=== PATIENT | female | born 1995 | race Caucasian/White ===

== ENCOUNTER 2020-09-24 13:19 | Emergency (ER) | payer OTHER, SELFPAY ==
[2020-09-24 14:46] VITALS: BP 98/68; PULSE 93; RESP 18; TEMP 36.9; O2SAT 98; BMI 28.5
[2020-09-24 16:28] LABS: MANUAL DIFF FLAG NO
[2020-09-24 16:30] LABS: Basophils Percent Auto 0.3 % (0-2); Eosinophils Absolute Auto 0.2 X10*3/uL (0.0-0.4); Eosinophils Percent Auto 1.6 % (0-4); Hematocrit 33.7 % (37-47); Hemoglobin 10.9 g/dl (12.0-16.0); Imm Gran Abs Auto 0.04 X10*3/uL (0.00-0.03); Imm Gran Pct Auto 0.4 % (0.0-0.4); Lymphocytes Absolute Auto 2.9 X10*3/uL (1.2-4.9); Lymphocytes Percent Auto 29.4 % (20-40); Mean Corpuscular HGB Conc 32.3 g/dl (31.0-35.0); Mean Corpuscular Hemoglobin 26.1 pg (27.0-33.0); Mean Corpuscular Volume 80.6 fL (80-98); Mean Platelet Volume 9.6 fL (9.4-12.3); Monocytes Absolute Auto 0.6 X10*3/uL (0.1-1.2); Monocytes Percent Auto 5.7 % (2-11); Neutrophils Absolute Auto 6.3 X10*3/uL (2.0-8.3); Neutrophils Percent Auto 62.6 % (45-73); Platelet Count 247 X10*3/uL (160-400); Red Blood Count 4.18 X10*6/uL (4.20-5.50); Red Cell Distribution Width 12.8 % (11.0-16.0)
[2020-09-24 16:37] VITALS: BP 105/67; PULSE 85; RESP 15; O2SAT 98
[2020-09-24 16:57] LABS: Alanine Aminotransferase 95 U/L (0-31); Albumin Level 4.2 g/dL (3.5-5.0); Alkaline Phosphatase 92 U/L (39-117); Anion Gap 12 (12-20); Aspartate Amino Transferase 57 U/L (5-31); Bilirubin Total 0.3 mg/dL (0.0-1.0); Blood Urea Nitrogen 11 mg/dL (9-16); Calcium 9.3 mg/dL (8.4-10.2); Carbon Dioxide 25 mmol/L (22-29); Chloride 106 mmol/L (96-108); Creatinine Clr Calc Pharmacy 128.6; Estimated Glomerular Filt Rate > 60; Glucose Random 90 mg/dL (60-115); Potassium 4.4 mmol/L (3.3-5.1); Sodium 139 mmol/L (135-145); Total Protein 7.1 g/dL (6.5-8.0)
[2020-09-24] MEDS: Amoxicillin/Potassium Clav 875 MG TABLET PO (17:02)
--- NOTE | 2020-09-24 17:44 | ED.HA ---
HPI - Headache General Chief Complaint: Headache Stated Complaint: headache Time Seen by Provider: 09/24/20 16:41 Source: patient Mode of arrival: ambulatory Limitations: no limitations History of Present Illness HPI Narrative: Patient history of headache off and on lately for last 3 days been having more headache is sensitive to light and has nausea patient also complaining of nasal congestion with and dry cough no fever no chills no urinary complaints patient does have family history of migraine but never treated or taken any medication, no fever no chills Related Data Previous Rx's Medication Instructions Recorded amoxicillin-pot clavulanate 1 tab PO BID #20 tab 09/24/20 [Augmentin] ondansetron 4 mg PO Q6-8H PRN #5 tab 09/24/20 sumatriptan succinate [Imitrex] 50 mg PO Q2H PRN #10 tab 09/24/20 Allergies Allergy/AdvReac Type Severity Reaction Status Date / Time No Known Allergies Allergy Unverified 12/25/19 19:09 [No Known Allergies*] Review of Systems Review of Systems: Yes all other systems are reviewed and are negative [facility] Social History Social History Alcohol intake: never Patient Tobacco Use Status: Never used Tobacco Use of substances other than those prescribed or required for medical reasons: No Advance Directives: No Advance Directives Information Provided: No Patient : No Physical Exam Vital Signs: Vital Signs: Last Vital Signs Temp 98.4 F 09/24/20 14:46 Pulse 83 09/24/20 17:51 Resp 16 09/24/20 17:51 BP 110/78 09/24/20 17:51 Pulse Ox 99 09/24/20 17:51 Body Mass Index 28.5 Appearance: Alert. Oriented X3. No acute distress. Eyes: PERRLA, No Nystagmus ENT: Pharynx normal. Oral Mucosa moist no sinus tenderness nasal turbinates inflamed with clear discharge Neck: Normal inspection. Neck supple. No temporal artery tenderness CVS: Normal heart rate and rhythm. Pulses normal. Respiratory: No respiratory distress. Equal air entry bilateral, no wheezing/rales/rhonchi Abdomen: Soft and nontender. Bowel sounds are present, no mass palpable, no CVA tenderness Skin: Skin warm and dry. Normal skin color. Normal skin turgor. Extremities: No lower extremity edema. No calf tenderness Neuro: Oriented X 3. No motor deficit. No sensory deficit.No cerebellar signs , cranial nerves II-XII intact MDM - Headache MDM Narrative Medical decision making narrative: Patient feeling better after Imitrex headache almost gone will discharge patient home on Imitrex tablets and Augmentin for sinus infection Lab Data Attestation: I reviewed the patient's lab results. Result diagrams: 09/24/20 15:59 09/24/20 15:59 Labs: Lab Results 09/24/20 09/24/20 Range/Units 15:59 15:59 WBC 10.0 (4.8-10.8) X10*3/uL RBC 4.18 L (4.20-5.50) X10*6/uL Hgb 10.9 L (12.0-16.0) g/dl Hct 33.7 L (37-47) % MCV 80.6 (80-98) fL MCH 26.1 L (27.0-33.0) pg MCHC 32.3 (31.0-35.0) g/dl RDW 12.8 (11.0-16.0) % Plt Count 247 (160-400) X10*3/uL MPV 9.6 (9.4-12.3) fL Immature Gran % (Auto) 0.4 (0.0-0.4) % Neut % (Auto) 62.6 (45-73) % Lymph % (Auto) 29.4 (20-40) % [place] % (Auto) 5.7 (2-11) % Eos % (Auto) 1.6 (0-4) % Baso % (Auto) 0.3 (0-2) % Lymph # (Auto) 2.9 (1.2-4.9) X10*3/uL [place] # (Auto) 0.6 (0.1-1.2) X10*3/uL Eos # (Auto) 0.2 (0.0-0.4) X10*3/uL Baso # (Auto) 0.0 (0.0-0.2) X10*3/uL Abs Immat Gran (auto) 0.04 H (0.00-0.03) X10*3/uL Absolute Neuts (auto) 6.3 (2.0-8.3) X10*3/uL Absolute Nucleated RBC 0.000 (0.0-0.012) X10*3/uL Nucleated RBC % (auto) 0.0 (0.0-0.2) /100WBC Sodium 139 (135-145) mmol/L Potassium 4.4 (3.3-5.1) mmol/L Chloride 106 (96-108) mmol/L Carbon Dioxide 25 (22-29) mmol/L Anion Gap 12 (12-20) BUN 11 (9-16) mg/dL Creatinine 0.64 (0.5-1.4) mg/dL Estim Creat Clear Calc 128.6 Estimated GFR > 60 Random Glucose 90 (60-115) mg/dL Calcium 9.3 (8.4-10.2) mg/dL Total Bilirubin 0.3 (0.0-1.0) mg/dL AST 57 H (5-31) U/L ALT 95 H (0-31) U/L Alkaline Phosphatase 92 (39-117) U/L Total Protein 7.1 (6.5-8.0) g/dL Albumin 4.2 (3.5-5.0) g/dL Discharge Plan Discharge Clinical Impression: Migraine, Acute rhinosinusitis Patient Disposition: Home, Self-Care Instructions: Migraine Headache (ED), Rhinosinusitis (ED) Additional Instructions: Take medication as advised follow-up with PCP if not better Prescriptions: New amoxicillin-pot clavulanate [Augmentin] 875-125 mg tablet 1 tab PO BID Qty: 20 RF: 0 sumatriptan succinate [Imitrex] 50 mg tablet 50 mg PO Q2H PRN (Reason: migraine headache) Qty: 10 RF: 0 ondansetron 4 mg tablet,disintegrating 4 mg PO Q6-8H PRN (Reason: Nausea And Vomiting) Qty: 5 RF: 0 Interventions: ED Discharge Assessment Last Done: 09/24/20 18:05 Discharge Date/Time: 09/24/20 18:08
[2020-09-24 17:51] VITALS: BP 110/78; PULSE 83; RESP 16; O2SAT 99
== END 2020-09-24 18:08 | disposition home or self-care (01) ==
PROVIDERS: Emergency Provider Internal Medicine; PCP Nurse Practitioner Primary Care
DX: G43.009 Migraine without aura, not intractable, without status migrainosus (principal); J01.90 Acute sinusitis, unspecified
CPT/HCPCS: 36415; 80053; 85025; 96372; 99284; J3030

== ENCOUNTER 2024-05-13 08:01 | Outpatient (AMB) | payer OTHER, SELFPAY ==
--- OUTSIDE RECORDS SUMMARY | 2024-05-13 08:04 | XMS_ITS | Clinical Summary ---
Author Organization [employer] Address [address] [place] [address] [address] [place] [address] Care Team Providers Care Churn Operator Name Role Phone Kennedi Romero Primary Care Provider Allergies Active Allergy Reactions Criticality Noted Date Comments Sumatriptan 06/07/2021 Other reaction(s): Nausea / Vomiting Medications buPROPion XL (Wellbutrin XL) 300 MG 24 hr tablet Take 1 tablet by mouth at bed time. 2 Active amphetamine-dextro amphetamine XR (Adderall XR) 10 MG 24 hr capsuleIndications :Attention deficit disorder (ADD) without hyperactivity Take 1 capsule (10 mg) by mouth Once per day. Do not crush or chew. 60 capsule 4 Active Active Problems Problem Noted Date Diagnosed Date Attention deficit disorder (ADD) without hyperac tivity 07/03/2022 Preoperative examination 04/06/2022 Assessment & Plan (04/06/2022 11:00 AM EST): Patient is here for a preoperative examination She is scheduled for: a tummy Tuck, Breast lift with implant and chin by Dr. Nigel Barney in [place] The procedure will be under general anesthesia [place] [id number] [facility], [place] [address] Patient has no particular complaints today, feels good otherwise EKG is within normal limits CMP, CBC, PT, INR done 03/17/2022 were normal Patients physical exam today, lab results and EKG are within normal limits I do not see any contraindication for patient to undergo this procedure Patient has been advised to remain under the care of surgeon until she completes her postoperative care Resolved Problems Problem Noted Date Diagnosed Date Resolved Date Attention deficit 07/03/2022 07/03/2022 Immunizations Name Administration Dates Next Due HPV, Quadrivalent 04/06/2011,12/20/2006,10/17/19 07 Hep A, ped/adol, 2 dose 04/29/2011,10/05/2010 Hep B, Adolescent or Pediatric 06/22/1995,1994,01/04/1995 Hep B, adult 08/01/2021 Influenza Injectable Quadriv alant Preservative Free IIV4 MDCK 12/28/2020,12/31/2019 Influenza injectable quadriv alent preservative free 01/30/2022,02/26/2018 MMR 03/09/1999,01/15/1996 PPD Test 02/04/2022 Tdap 11/15/2020,02/26/2018 Social History Tobacco Use Types Packs/Day Years Used Date Smoking Tobacco: Never Smokeless Tobacco: Never Tobacco Cessation:Counseling Given: Not Answered Alcohol Use Standard Drinks/Week Comments Not Currently 0 (1 standard drink = 0.6 oz pur e alcohol) Housing Stability Answer Date Recorded What is your housing situation today? I have housing today, but I am worried about losing housing in the future 02/12/[address] you li ve. Do you have problems with any of the following? None of the above 02/12/2023 Food Insecurity Answer Date Recorded Within the past 12 months, y ou worried that your food would run out before you got money to buy more: Never True 02/12/2023 Within the past 12 months,th e food you bought just didn't last and you didn't have enough money to get more: Never True 09/2022 Transportation Answer Date Recorded In the past 12 months, has l ack of transportation kept you from medical appts, meetings, work or from getting things needed for daily living? No 02/12/2023 Utilities Answer Date Recorded In the past 12 months, has t he electric, gas, oil or water company threatened to shut off services in your home? No 02/12/2023 Depression Answer Date Recorded Patient Health Questionnaire-2 Score 0 04/06/2022 Comments Unknown Sex and Gender Information Value Date Recorded Sex Assigned at Female 02/06/2022 10:34 AM EDT Legal Sex Female 10:34 AM EDT Gender Identity Female 02/06/2022 10:34 AM EDT Sexual Orientation Straight 02/06/2022 10 :34 AM EDT Last Filed Vital Signs Vital Sign Reading Time Taken Comments Blood Pressure 104/82 04/06/2022 10:04 AM EST Pulse 88 04/06/2022 10:04 AM EST Temperature 37.1 ??C (98.7 ??F) 04/06/2022 10:[address] Respiratory Rate 20 04/06/2022 10:04 AM EST Oxygen Saturation 98% 04/06/2022 10:04 AM EST Inhaled Oxygen Concentration - - Weight 72.1 kg (159 lb) 04/06/2022 10:04 AM EST Height 160 cm (5' 3 ) 04/06/2022 10:04 AM EST Body Mass Index 28.17 04/06/2022 10:04 AM EST Plan of Treatment Upcoming Encounters Date Type Department Care Team (Late st Contact Info) Description 06/24/2024 1:30 PM EDT Office Visit [facility] [address] [place] [address] Kennedi Romero, ANP [address] [place], [place] [phone] Health Maintenance Due Date Last Done Comments Alcohol/Substance Use Screening 2006 Family Planning (PISQ) 2009 Pap Smear 12/27/2015 Depression Screening 04/06/2023 04/06/2022, 04/06/20 22 SDOH Screening 04/06/2023 04/06/2022 Tobacco Screening 07/04/2023 07/03/2022 COVID-19 Vaccine ( season) 2023 12/07/2021, 05/04/2020, 04/06/2020 Influenza Vaccine (#1) 2023 , 01/30/2022, 12/28/2020, Additional history exists DTaP/Tdap/Td Vaccines (3 - Td or Tdap) 11/15/2030 11/15/2020, 02/26/2018 Zoster Vaccines (1 of 2) 2044 RSV Patients and Patients Aged 60 years or older (1 - 1-dose 75+ series) 2069 HPV Vaccines Completed 04/06/2011, 12/08, 10/16/2006 Hepatitis A Vaccines Completed 04/29/2011, 10/06/19 11 HIV Screening Completed 11/15/2020 Hepatitis C Screening Completed 11/15/2020 Hepatitis B Vaccines Completed 08/01/2021, 06/22/1995, 02/16/1995, Additional history exists HIB Vaccines Aged Out No longer eligi ble based on patient's age to complete this topic IPV Vaccines Aged Out No longer eligi ble based on patient's age to complete this topic Meningococcal Vaccine Aged Out No jaja loren eligible based on patient's age to complete this topic Pneumococcal Vaccine: Pediatrics (0 to 5 Years) and At-Risk Patients (6 to 49) Years) Aged Out No longer eligible based on patient's age to complete this topic RSV under 20 months Aged Out No longe r eligible based on patient's age to complete this topic Rotavirus Vaccines Aged Out No longer eligible based on patient's age to complete this topic Procedures Procedure Name Priority Date/Time Associated Diagnosis Comments ZZZ HISTORICAL HEPATITIS C AB W/REFL TO HCV RNA, QN, PCR Routine 11/15/2020 1:59 PM EDT HIV 1/2 ANTIGEN/ANTIBODY, FOURTH GENERATION W/RFL Routine 11/15/2020 1:59 PM EDT from Last 3 Months or Most Recently Relevant to Health Maintenance Results * HEPATITIS C AB W/REFL TO HCV RNA, QN, PCR (11/15/2020 1:59 PM EDT) HEPATITIS C ANTIBODY NON-REACT [facility] NON-REACT [facility] INDEX 0.02 <1.00 [facility] Comment: ?? HCV antibody was non-reactive. There is no laboratory ?? evidence of HCV infection. ?? In most cases, no further action is required. However, if recent HCV exposure is suspected, a test for HCV RNA (test code 01123) is suggested. ?? For additional information please refer to http://education.Carte [place]anche/faq/PAV61s9 (This link is being provided for informational/ educational purposes only.) ?? 11/15/2020 1:59 PM EDT Kennedi Romero ANP HISTORICAL/NON ORDERABLE LABS Fi nal Result Performing Organization Address [facility] de Phone Number [facility] [address] * HIV 1/2 ANTIGEN/ANTIBODY,FOURTH GENERATION W/RFL (11/15/2020 1:59 PM EDT) HIV-1/2 ANTIGEN AND ANTIBODIES, 4TH GENERATION W/ REFLEX NON-REACT RICKY NON-REACT [facility] Comment: HIV-1 antigen and HIV-1/HIV-2 antibodies were not detected. There is no laboratory evidence of HIV infection. ?? PLEASE NOTE: This information has been disclosed to you from records whose confidentiality may be protected by state law. ??If your state requires such protection, then the state law prohibits you from making any further disclosure of the information without the specific written consent of the person to whom it pertains, or as otherwise permitted by law. A general authorization for the release of medical or other information is NOT sufficient for this purpose. ? For additional information please refer to http://education.Carte [place]anche/faq/QEH055 (This link is being provided for informational/ educational purposes only.) ? The performance of this assay has not been clinically validated in patients less than 2 years old. ?? 11/15/2020 1:59 PM EDT Kennedi Romero ANP LAB BLOOD ORDERABLES Final Resul t Performing Organization Address [facility] de Phone Number [facility] [address] from Last 3 Months or Most Recently Relevant to Health Maintenance Insurance [facility] Care Teams Churn Operator Relationship Specialty Start Date End Date Kennedi Romero ANP [address] [place] [phone] PCP - General Family Medicine 09/14/20
--- NOTE | 2024-05-13 08:13 | MHC.OFFWIV ---
Intake Vital Signs 05/13/24 08:14 Weight 163 lb 4 oz BP 110/68 Blood Pressure Location Rt brachial Position Sitting Pulse 70 Pulse Source Pulse Oximeter Temp 98.4 F Temp Source Oral Pulse Oximetry (%) 98 Oxygen Delivery Method Room Air Intake Visit Reasons: REHABILITATION LIAISON Cold symptoms/caused pulled muscle neck Intake Note: Patient here for cough, congestion and pulled muscle in neck from coughing so hard. Patient Tobacco Use Status: Never used Tobacco Allergies No Known Allergies [No Known Allergies*] Allergy (Unverified 05/13/24 08:22) Do you need a note to return to daycare/school/sports/work: No HPI HPI Comments History of Present Illness Details History - The patient is a 28-year-old female presenting with symptoms of a cold and left sided neck muscle strain from sneezing. - She reports experiencing a cold for the past three days, characterized by significant coughing, congestion, and sneezing. She denies having a fever but indicates mild shortness of breath attributed to excessive coughing. - The onset of the cold symptoms followed a recent norovirus infection last week, during which she experienced nausea, vomiting, and diarrhea. - The muscle strain occurred when she sneezed forcefully, resulting in neck pain and restricted neck movement. - She does not report any ear or sinus pain. 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 Posterior oropharynx not erythematous Eyes: Appearance normal, both eyes and all related structures Neck: Normal visual inspection, no TTP cervical spine, TTP along left sided trapezius Respiratory: Clear to auscultation bilaterally. Normal respiratory effort, able to speak in complete sentences, Actively coughing, no respiratory distress, not tachypneic, no tripod positioning and no use of accessory muscles Cardiovascular: Regular rate and rhythm. Normal S1 and S2 Skin: No rashes or lesions noted Neuro: Patient oriented x3 Extremities: Normal to inspection and Yes no clubbing, cyanosis or edema Plan [facility] Social History Alcohol intake: never Patient Tobacco Use Status: Never used Tobacco Review of Systems Const All systems reviewed & are unremarkable except as noted in HPI and below Physical Exam Vital Signs: Last Vital Signs Temp 98.4 F 05/13/24 08:14 Pulse 70 05/13/24 08:14 BP 110/68 05/13/24 08:14 Pulse Ox 98 05/13/24 08:14 Oxygen Delivery Method Room Air 05/13/24 08:14 Assessment & Plan Assessment & Plan (1) Lower respiratory infection (e.g., bronchitis, pneumonia, pneumonitis, pulmonitis): Code(s): J22 - Unspecified acute lower respiratory infection Plan: Tests for influenza, COVID-19, and RSV are initiated, with results expected by tomorrow. Meanwhile, the patient is directed to use Mucinex or Lavonne D to address congestion, along with Tessalon Perles and Benadryl to manage nighttime symptoms. Ibuprofen is recommended for its anti-inflammatory properties to reduce coughing distress. This interim regimen is designed to maintain comfort and symptom management while awaiting further diagnostic clarity. Wrote work note for 2 days. Patient was informed and verbally consented to the use of an ambient scribe for clinic note documentation during this visit (2) Strain of neck muscle: Code(s): S16.1XXA - Strain of muscle, fascia and tendon at neck level, initial encounter Qualifiers: Encounter type: initial encounter Qualified Code(s): S16.1XXA - Strain of muscle, fascia and tendon at neck level, initial encounter Plan: Muscle relaxer sent for neck strain. Recommended adding 600mg ibuprofen every 6 hours PRN. Orders: Orders SARS-CoV2/FLU/RSV Today R09.89 - Other specified symptoms and signs involving the circulatory and respiratory systems Medications: New cyclobenzaprine Take 1-2 tablets every 8 hours as needed for muscle spasms 5 mg PO Q8H PRN 20 tabs 0RF Muscle Spasm benzonatate 200 mg PO TID PRN 14 caps 0RF cough Discontinued sumatriptan succinate (Imitrex) do not exceed 2 doses per 24 hrs Discontinued Reason: Patient no longer taking 50 mg PO Q2H PRN 10 tabs 0RF migraine headache amoxicillin-pot clavulanate 875-125 mg (Augmentin) Discontinued Reason: Patient Completed Course 1 tab PO BID 20 tabs 0RF ondansetron Discontinued Reason: Patient no longer taking 4 mg PO Q6-8H PRN 5 tabs 0RF Nausea And Vomiting Coding Level of Care Code New Pt Level 4 (58044) Diagnoses Lower respiratory infection (e.g., bronchitis, pneumonia, pneumonitis, pulmonitis) J22 Strain of neck muscle, initial encounter S16.1XXA Encounter type: initial encounter
[2024-05-13 08:14] VITALS: BP 110/68; PULSE 70; TEMP 36.9; O2SAT 98
== END 2024-05-13 09:04 | disposition home or self-care (01) ==
PROVIDERS: Visit Provider Physician Assistant
DX: J22 Unspecified acute lower respiratory infection (principal); S16.1XXA Strain of muscle, fascia and tendon at neck level, initial encounter

== ENCOUNTER 2024-05-13 08:01 | Outpatient (REF) | payer OTHER, SELFPAY | END 2024-05-13 08:02 | disposition home or self-care (01) | LOC: HO.LAB 08:01 | DX: Z13.89 Encounter for screening for other disorder (principal) ==

== ENCOUNTER 2024-05-13 08:01 | Outpatient (REF) | payer OTHER, SELFPAY ==
--- OUTSIDE RECORDS SUMMARY | 2024-05-13 11:01 | XMS_ITS | Clinical Summary ---
Author Organization [employer] Address [address] [place] [address] [address] [place] [address] Care Team Providers Care Edge Brusher Name Role Phone Kennedi Romero Primary Care Provider [phone] Allergies Active Allergy Reactions Criticality Noted Date [...] and chin by Dr. Nigel Barney in [place] The procedure will be under general anesthesia [place] [id number] [facility], [place] [address] Patient has no particular complaints today, feels [...] Description 06/24/2024 1:30 PM EDT Office Visit [facility] [address] [place] [address] Kennedi Romero, ANP [address] [place], [place] [phone] Health Maintenance Due Date Last Done Comments [...] [facility] INDEX 0.02 <1.00 [facility] Comment: ?? HCV antibody was non-reactive. There is no laboratory ?? evidence of HCV infection. ?? In most cases, no further action is required. However, if recent HCV exposure is suspected, a test for HCV RNA (test code 63972) is suggested. ?? For additional information please refer to http://education.Button/faq/VPY68k7 (This link is being provided for informational/ educational purposes only.) ?? 11/15/2020 1:59 PM EDT Kennedi Romero ANP HISTORICAL/NON ORDERABLE LABS Fi nal Result Performing Organization Address [facility] de Phone Number [facility] [address] * HIV 1/2 ANTIGEN/ANTIBODY,FOURTH GENERATION W/RFL (11/15/2020 1:59 PM EDT) HIV-1/2 ANTIGEN AND ANTIBODIES, 4TH GENERATION W/ REFLEX NON-REACT [facility] NON-REACT [facility] Comment: HIV-1 antigen and HIV-1/HIV-2 [...] ? For additional information please refer to http://education.Button/faq/BCM362 (This link is being provided for informational/ educational purposes only.) ? The performance of this assay has not been clinically validated in patients less than 2 years old. ?? 11/15/2020 1:59 PM EDT Kennedi Romero ANP LAB BLOOD ORDERABLES Final Resul t Performing Organization Address [facility] de Phone Number [facility] [address] from Last 3 Months or Most Recently Relevant to Health Maintenance Insurance [facility] Care Teams Edge Brusher Relationship Specialty Start Date End Date Kennedi Romero ANP [address] [place] [phone] PCP - General Family Medicine 09/14/20
[2024-05-13 12:38] LABS: Influenza A PCR NEGATIVE (Negative); Influenza B PCR NEGATIVE (Negative); Resp Syncy Virus RNA Qual PCR NEGATIVE (Negative); SARS COV2 PCR INHOUSE NEGATIVE (Negative)
== END 2024-05-13 08:02 | disposition home or self-care (01) ==
LOC: HO.LNP 08:01
PROVIDERS: Visit Provider Physician Assistant
DX: R05.1 Acute cough (principal); R09.89 Other specified symptoms and signs involving the circulatory and respiratory systems
CPT/HCPCS: 0241U

== ENCOUNTER 2024-08-04 16:54 | Outpatient (REF) | payer OTHER, SELFPAY ==
--- OUTSIDE RECORDS SUMMARY | 2024-08-04 19:07 | XMS_ITS | Encounter Summary ---
Author Organization [employer] Address [address] [place] [id number] Care Team Providers Care Commercial Producer Name Role Phone Nick Kennedi WE[place]OOK Primary Care Provider [phone] Reason for Referral * Imaging (Urgent) - Authorized Specialty Diagnoses / Procedures Referred By Finaac t Referred To Contact Radiology Diagnoses Dysmenorrhea Menorrhagia with regular cycle Procedures Us Pelvis complete Devika Monahan CNM [address] [place] [address] Phone: tel: fax: [facility] [address] [place] [id number] Phone: tel: fax: Referral ID Status Reason Start Date Expiration Date V isits Requested Visits Authorized [id number] Authorized 08/04/2024 08/04/2025 1 1 * Imaging (Urgent) - Authorized Specialty Diagnoses / Procedures Referred By Contac t Referred To Contact Radiology Diagnoses Dysmenorrhea Menorrhagia with regular cycle Procedures US Pelvis Transvaginal Devika Monahan CNM [address] [place] [address] Phone: tel: fax: [facility] [address] [place] [phone] Phone: tel: fax: Referral ID Status Reason Start Date Expiration Date V isits Requested Visits Authorized [id number] Authorized 08/04/2024 08/04/2025 1 1 Reason for Visit * Reason Comments Gynecologic Exam Encounter Details Date Type Department Care Team (Latest Contact Info) Description 08/04/2024 9:30 AM EDT Procedure Visit [facility] [address] [place] [address] Devika Monahan CNM [address], [place] [phone] Cervical cancer screening (Primary Dx); Dysmenorrhea; Menorrhagia with regular cycle Social History Tobacco Use Types Packs/Day Years Used Date Smoking Tobacco: Never Smokeless Tobacco: Never Tobacco Cessation:Counseling Given: Not Answered Alcohol Use Standard Drinks/Week Comments Not Currently 0 (1 standard drink = 0.6 oz pur e alcohol) Depression Answer Date Recorded Patient Health Questionnaire-9 Score 0 06/24/2024 Patient Health Questionnaire-9 Score 0 06/24/2024 Last PHQ-9: Questionnaire Data Not on file 0 06/24/2024 Housing Stability Answer Date Recorded What is your housing situation today? I have guillermina loera 06/17/[address] you li ve. Do you have problems with any of the following? None of the above 06/17/2024 Food Insecurity Answer Date Recorded Within the past 12 months, y ou worried that your food would run out before you got money to buy more: Never True 06/17/2024 Within the past 12 months,th e food you bought just didn't last and you didn't have enough money to get more: Never True 02/2025 Transportation Answer Date Recorded In the past 12 months, has l ack of transportation kept you from medical appts, meetings, work or from getting things needed for daily living? No 06/17/2024 Utilities Answer Date Recorded In the past 12 months, has t he electric, gas, oil or water company threatened to shut off services in your home? No 06/17/2024 Depression Answer Date Recorded Patient Health Questionnaire-2 Score 0 06/24/2024 Internet Access Answer Date Recorded Internet Access Q1 Yes 06/17/2024 Internet Access Q2 Not on file 06/17/2024 Comments No Sex and Gender Information Value Date Recorded Sex Assigned at Female 02/06/2022 10:34 AM EDT Legal Sex Female 10:34 AM EDT Gender Identity Female 02/06/2022 10:34 AM EDT Sexual Orientation Straight 02/06/2022 10 :34 AM EDT documented as of this encounter Last Filed Vital Signs Vital Sign Reading Time Taken Comments Blood Pressure 119/83 08/04/2024 9:49 AM EDT Pulse 77 08/04/2024 9:49 AM EDT Temperature 36.6 ??C (97.9 ??F) 08/04/2024 9:49 AM ED T Respiratory Rate 16 08/04/2024 9:49 AM EDT Oxygen Saturation 99% 08/04/2024 9:49 AM EDT Inhaled Oxygen Concentration - - Weight 71.3 kg (157 lb 3.2 oz) 08/04/2024 9:49 A M EDT Height 160 cm (5' 3 ) 08/04/2024 9:49 AM EDT Body Mass Index 27.85 08/04/2024 9:49 AM EDT documented in this encounter Progress Notes * Devika Monhaan CNM - 08/04/2024 9:30 AM EDT Subjective Patient ID: Disha Stewart is a 28 y.o. female who presents for pap Last pap 5 years ago, no prior abnormal. 1 AMAB partner x 14y, no safety concerns. Partner has vasectomy. Not planning any more children, happy with method. Notes increasingly heavier, more painful menses x 5 months. Monthly menses x3- 4d. Cramping precedesmenses by 2 days. Needs to wear tampon and pad together and changes Q2h on heaviest days. Review of Systems HENT: Negative for nosebleeds. Genitourinary: Negative for dyspareunia, dysuria, frequency, genital sores, hematuria, menstrual problem, pelvic pain, urgency, vaginal bleeding, vaginal discharge and vaginal pain. No abnormal pap, no abnormal bleeding, no breast pain, no breast mass, no nipple discharge Hematological: Does not bruise/bleed easily. Objective BP 119/83 (BP Location: Left arm, Patient Position: Sitting, BP Cuff Size: Adult) Pulse 77 Temp97.9 ??F (36.6 ??C) (Temporal) Resp 16 Ht 5' 3 (1.6 m) Wt 157 lb 3.2 oz (71.3 kg) LMP 07/23/2024 (Exact Date) SpO2 99% BMI 27.85 kg/m?? Physical Exam Constitutional: Appearance: Normal appearance. Chest: Breasts: Right: Normal. No swelling, bleeding, inverted nipple, mass, nipple discharge, skin change or tenderness. Left: Normal. No swelling, bleeding, inverted nipple, mass, nipple discharge, skin change or tenderness. Comments: Surgical scars with some hypertrophy and implants bilaterally Abdominal: General: A surgical scar is present. Genitourinary: General: Normal vulva. Labia: Right: No rash, tenderness, lesion or injury. Left: No rash, tenderness, lesion or injury. Vagina: Normal. No signs of injury and foreign body. No vaginal discharge, erythema, tenderness, bleeding or lesions. Cervix: No cervical motion tenderness, discharge, friability, lesion, erythema, cervical bleeding or eversion. Uterus: Normal. Not enlarged and not tender. Adnexa: Right adnexa normal and left adnexa normal. Right: No mass, tenderness or fullness. Left: No mass, tenderness or fullness. Lymphadenopathy: Upper Body: Right upper body: No supraclavicular or axillary adenopathy. Left upper body: No supraclavicular or axillary adenopathy. Neurological: Mental Status: She is alert. Psychiatric: Mood and Affect: Mood normal. Behavior: Behavior normal. Assessment/Plan Diagnoses and all orders for this visit: Cervical cancer screening - Pap Smear Repeat 3 years if normal. Will contact with results. Dysmenorrhea - US Pelvis Transvaginal; Future - Us Pelvis complete; Future Worsening for past 5 months. Will get ultrasound. Consider hormonal therapy if she wants after that. Currently using Midol with fairly good response. Menorrhagia with regular cycle - US Pelvis Transvaginal; Future - Us Pelvis complete; Future Normal TSH/cbc 06/2024. Will get ultrasound to rule out structural issues. documented in this encounter Plan of Treatment Upcoming Encounters Date Type Department Care Team (Sunny [facility] Gabriela Info) Description 09/30/2024 9:15 AM EDT Office Visit [facility] [address] [place] [address] Kennedi Romero ANP [address] [place] [address] Scheduled Orders Name Type Priority Associated Diagnoses Order Schedule Pap Smear Pathology and Cytology Routine Cervical cancer screening Ordered: 08/04/2024 US Pelvis Transvaginal Imaging Urgent Dysmenorrhea Menorrhagia with regular cycle Expected: 08/04/2024, Expires: 08/04/2025 Us Pelvis complete Imaging Urgent Dysmenorrhea Menorrhagia with regular cycle Expected: 08/04/2024, Expires: 08/04/2025 documented as of this encounter Visit Diagnoses Diagnosis Cervical cancer screening- Primary Screening for malignant neoplasm of the cervix Dysmenorrhea Menorrhagia with regular cycle documented in this encounter Additional Health Concerns Assessment Noted Time PHQ-9 Depression Total Score: 0 06/25/19 25 12:57 PM EDT documented as of this encounter Care Teams Commercial Producer Relationship Specialty Start Date End Date Kennedi Romero ANP [address] [place] [address] PCP - General Family Medicine 09/14/20 documented as of this encounter
--- OUTSIDE RECORDS SUMMARY | 2024-08-04 19:07 | XMS_ITS | Encounter Summary ---
Author Organization [employer] Address [address] [place] [address] Care Team Providers Care Back Hand Name Role Phone Kennedi Romero Primary Care Provider [phone] Encounter Details Date Type Department Care Team (Latest Contact Info) Description 08/04/2024 Travel Social History Tobacco Use Types Packs/Day Years Used Date Smoking Tobacco: Never Smokeless Tobacco: Never Alcohol Use Standard Drinks/Week Comments Not Currently [...] AM EDT documented as of this encounter Plan of Treatment Upcoming Encounters Date Type Department Care Team (Late st Contact Info) Description 09/30/2024 9:15 AM EDT Office Visit [facility] [address] [place] [address] Kennedi Romero ANP [address] [place] [address] documented as of this encounter Visit Diagnoses Not on filedocumented in this encounter Additional Health Concerns Assessment Noted Time PHQ-9 Depression Total Score: 0 06/25/19 25 12:57 PM EDT documented as of this encounter Care Teams Back Hand Relationship Specialty Start Date End Date Kennedi Romero ANP [address] [place] [id number] PCP - General Family Medicine 09/14/20 documented as of this encounter
--- OUTSIDE RECORDS SUMMARY | 2024-08-04 19:07 | XMS_ITS | Clinical Summary ---
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 Do not crush or chew. 30 capsule 07/31/19 25 025 Active amphetamine-dextr oamphetamine XR (Adderall XR) 15 MG 24 hr capsuleIndication s:Attention deficit disorder (ADD) without hyperactivity Take 1 capsule (15 mg) by mouth Once per day. Do not crush or chew. 30 capsule 06/25/19 25 025 Discontinued(Re order (will not trigger notification to Pharmacy)) Active Problems Problem Noted Date Diagnosed Date Attention deficit disorder (ADD) without hyperac tivity 07/03/2022 Preoperative examination 04/06/2022 Assessment & Plan (04/06/2022 11:00 AM EST): Patient is here for a preoperative examination She is scheduled for: a tummy Tuck, Breast lift with implant and chin by Dr. Nigel Barney in [place] The procedure will be under general anesthesia [place] [id number] [facility], [place] [address] Patient has no particular complaints today, feels [...] Date Resolved Date Attention deficit 07/03/2022 07/03/2022 Encounters Date Type Department Care Team Description 08/04/2024 9:30 AM EDT Procedure Visit [address] [address] Devika Monahan CNM Cervical cancer screening (Primary Dx); Dysmenorrhea; Menorrhagia with regular cycle 08/04/2024 Travel 07/29/[address] [address] Kennedi Romero ANP Attention deficit disorder (ADD) without hyperactivity 07/28/2024 Travel 06/26/2024 Orders Only [address] [address] Kennedi Romero ANP 06/24/2024 1:30 PM EDT Office Visit [address] [address] Kennedi Romero ANP Attention deficit disorder (ADD) without hyperactivity (Primary Dx); Healthcare maintenance; Lipid screening; History of gestational diabetes; Bilateral impacted cerumen 06/24/2024 Travel 06/17/2024 Patient Outreach [address] [address] Kennedi Romero ANP Pre-visit Planning (SDOH Screening negative and Tobacco screening negative) from Last 3 Months Immunizations Name Administration Dates Next Due HPV, Quadrivalent 04/06/2011,12/20/2006,10/17/19 07 Hep A, ped/adol, 2 dose 04/29/2011,10/05/2010 Hep B, Adolescent or Pediatric 06/22/1995,1994,01/04/1995 Hep B, adult 08/01/2021 INFLUENZA INJECTABLE QUADRIV ALANT CCIIV4 MDCK Multi-dose vial 12/31/2019 Influenza Injectable Quadriv alant Preservative Free IIV4 MDCK 03/09/2023,12/28/2020,12/31/2019 Influenza injectable quadriv alent preservative free 01/30/2022,02/26/2018 Influenza, seasonal, injecta ble, preservative free 03/15/2024 MMR 03/09/1999,01/15/1996 PPD Test 02/04/2022 Pfizer Covid-19 Vaccine 12+ 06/24/2024 Tdap 11/15/2020,02/26/2018 Family History Medical History Relation Name Comments Diabetes Father Jaki Breast cancer Neg Hx Colon cancer Neg Hx Ovarian cancer Neg Hx Relation Name Status Comments Father Jaki Social History Tobacco Use Types Packs/Day Years [...] is your housing situation today? I have guillerminanba loera 06/17/[address] you [...] Mass Index 27.85 08/04/2024 9:49 AM EDT Plan of Treatment Upcoming Encounters Date Type Department Care Team (Late st Contact Info) Description 09/30/2024 9:15 AM EDT Office Visit [facility] [address] [place] [address] Kennedi Romero, ANP [address] [place] [address] Health Maintenance Due Date Last Done Comments Pap Smear 12/27/2015 Alcohol/Substance Use Screening 06/24/2025 06/24/2024 Depression Screening 06/24/2025 06/24/2024, 06/25/19 25 SDOH Screening 06/24/2025 06/24/2024 Family Planning (PISQ) 08/04/2025 08/04/2024 Tobacco Screening 08/04/2025 08/04/2024 DTaP/Tdap/Td Vaccines (3 - Td or Tdap) 11/15/2030 11/15/2020, 02/26/2018 Zoster Vaccines (1 of 2) 2044 RSV Patients and Patients Aged 60 years or older (1 - 1-dose 75+ series) 2069 HPV Vaccines Completed 04/06/2011, 12/08, 10/16/2006 Hepatitis A Vaccines Completed 04/29/2011, 10/06/19 Hepatitis C Screening Completed 11/15/2020 Hepatitis B Vaccines Completed 08/01/2021, 06/22/1995, 02/16/1995, Additional history exists Influenza Vaccine Completed 03/15/2024, , 01/30/2022, Additional history exists COVID-19 Vaccine Completed 06/24/2024, , 05/04/2020, Additional history exists HIV Screening Completed 06/26/2024, 11/15/2020 HIB Vaccines Aged Out No longer eligi [...] Procedure Name Priority Date/Time Associated Diagnosis Comments RPR (DX) W/REFL TITER AND CONFIRMATORY TESTING Routine 06/26/2024 8:11 AM EDT T-SPOT(R).TB Routine 06/26/2024 8:11 AM EDT HEMOGLOBIN A1C Routine 06/26/2024 8:11 AM EDT TSH W/REFLEX TO FT4 Routine 06/26/2024 8 :11 AM EDT HIV 1/2 ANTIGEN/ANTIBODY, FOURTH GENERATION W/RFL Routine 06/26/2024 8:11 AM EDT HEPATITIS B CORE AB TOTAL Routine 06/26/2024 8:11 AM EDT HEPATITIS B SURFACE ANTIBODY, QUALITATIVE Routine 06/26/2024 8:11 AM EDT HEPATITIS B SURFACE ANTIGEN W/REFL CONFIRM Routine 06/26/2024 8:11 AM EDT CBC WITH AUTO DIFFERENTIAL Routine 06/26/2024 8:11 AM EDT COMPREHENSIVE METABOLIC PANEL Routine 06/26/2024 8:11 AM EDT LIPID PANEL, STANDARD Routine 06/26/2024 8:11 AM EDT ZZZ HISTORICAL HEPATITIS C AB W/REFL TO HCV RNA, QN, PCR Routine 11/15/2020 1:59 PM EDT from Last 3 Months or Most Recently Relevant to Health Maintenance Results * T-SPOT??.TB (06/26/2024 8:11 AM EDT) T-Spot. TB Negative Negative [facility] Comment: A negative test result does not exclude the possibility of exposure to or infection with Mycobacterium tuberculosis (M. tuberculosis). Patients with recent exposure to TB infected individuals exhibiting a negative T-SPOT.TB result should be considered for retesting within 6 weeks or if other relevant clinical symptoms indicate. Results from T-SPOT.TB testing must be used in conjunction with each individual's epidemiological history, current medical status, and results of other diagnostic evaluations. ? The T-SPOT.TB test is qualitative and results are reported as positive, borderline, or negative, given that the test controls perform as expected. In line with the Centers for Disease Control and Prevention's 2010 recommendation to report quantitative measurements alongside the qualitative result, the laboratory provides spot counts for informational purposes only. The T-SPOT.TB test should not be interpreted as a quantitative test. Panel A Spot Count Corrected For Neg Control 0 [facility] Panel B Spot Count Corrected For Neg Control 0 [facility] Negative Control Passed [facility] Positive Control Passed [facility] Comment: For additional information, please refer to http://education.DiscountIF/faq/NSF378 (This link is being provided for informational/ educational purposes only.) ? 06/26/2024 8:11 AM EDT 06/26/2024 8:16 AM EDT Narrative [facility] - 06/28/2024 5:17 PM EDT FASTING:YES FASTING: YES Kennedi Romero [facility] LAB BLOOD ORDERABLES Final Resul t Performing Organization Address [facility] de Phone Number [facility] [address], [facility] [place] [address] [facility] [address] [facility] [place] [address] * TSH with Reflex to Free T4 (06/26/2024 8:11 AM EDT) TSH w/Reflex to FT4 2.41 mIU/L [facility] Comment: ?Reference Range ?> or = 20 Years ??0.40-4.50 ? Ranges ?First trimester ?0.26-2.66 ?Second trimester ?? 0.55-2.73 ?Third trimester ?0.43-2.91 06/26/2024 8:11 AM EDT 06/26/2024 8:16 AM EDT Narrative [facility] - 06/28/2024 5:17 PM EDT FASTING:YES FASTING: YES us Kennedi Romero [facility] LAB BLOOD ORDERABLES Final Resul t Performing Organization Address [facility] Co de Phone Number [facility] [address], [facility] [place] [address] [facility] [address] [place] [address] * RPR (Diagnosis) with Reflex to Titer??and Confirmatory Testing (06/26/2024 8:11 AM EDT) Pathologist [facility] RPR (DX) w/Refl Titer and Confirmatory Testing NON-REACT RICKY NON-REACT RICKY [facility] Comment: No laboratory evidence of syphilis. If recent exposure is suspected, submit a new sample in 2-4 weeks. 06/26/2024 8:11 AM EDT 06/26/2024 8:16 AM EDT Narrative [facility] - 06/28/2024 5:17 PM EDT FASTING:YES FASTING: YES [facility] LAB BLOOD ORDERABLES Final Resul t [facility] [address], [place] [address] [facility] [address] [place] [address] * CBC auto differential (06/26/2024 8:11 AM EDT) Pathologist [facility] White Blood Cell Count 7.2 3.8 - 10.8 Thousand/ uL [facility] Red Blood Cell Count 4.57 3.80 - 5.10 Million/u L [facility] Hemoglobin 12.4 11.7 - 15.5 g/dL [facility] Hematocrit 38.2 35.0 - 45.0 % [facility] MCV 83.6 80.0 - 100.0 fL [facility] MCH 27.1 27.0 - 33.0 pg [facility] MCHC 32.5 32.0 - 36.0 g/dL [facility] Comment: For adults, a slight decrease in the calculated MCHC value (in the range of 30 to 32 g/dL) is most likely not clinically significant; however, it should be interpreted with caution in correlation with other red cell parameters and the patient's clinical condition. RDW 12.6 11.0 - 15.0 % [facility] Platelet Count 242 140 - 400 Thousand/ uL [facility] MPV 10.2 7.5 - 12.5 fL [facility] Absolute Neutrophils 3,902 1,500 - 7,800 cells/uL [facility] Absolute Lymphocytes 2,484 850 - 3,900 cells/uL [facility] Absolute Monocytes 684 200 - 950 cells/uL [facility] Absolute Eosinophils 101 15 - 500 cells/uL [facility] Absolute Basophils 29 0 - 200 cells/uL [facility] Neutrophils 54.2 % [facility] Lymphocytes 34.5 % [facility] Monocytes 9.5 % [facility] Eosinophils 1.4 % [facility] Basophils 0.4 % [facility] 06/26/2024 8:11 AM EDT 06/26/2024 8:16 AM EDT Narrative [facility] - 06/28/2024 5:17 PM EDT FASTING:YES FASTING: YES [facility] LAB BLOOD ORDERABLES Final Resul t [facility] [address] [place] [address] [facility] [address] [place] [address] * Hepatitis B Core Antibody, Total (06/26/2024 8:11 AM EDT) Hepatitis B Core Antibody Total NON-REACT RICKY NON-REACT RICKY [facility] [place] [facility] Comment: For additional information, please refer to http://education.DiscountIF/faq/VAR992 (This link is being provided for informational/ educational purposes only.) 06/26/2024 8:11 AM EDT 06/26/2024 8:16 AM EDT Narrative [facility] - 06/28/2024 5:17 PM EDT FASTING:YES FASTING: YES us Kennedi Romero ANP LAB BLOOD ORDERABLES Final Resul t [facility] [address], [facility] [place] [address] [facility] [address] [place] [address] * HIV-1/2 Antigen and Antibodies, Fourth Generation, with Reflexes (06/26/2024 8:11 AM EDT) Pathologist [facility] HIV Antigen/Antibody, 4th Generation NON-REAC TIVE NON-REAC TIVE [facility] [place] [facility] Comment: HIV-1 antigen and HIV-1/HIV-2 antibodies were not detected. There is no laboratory evidence of HIV infection. PLEASE NOTE: This information has been disclosed [...] information is NOT sufficient for this purpose. ?? For additional information please refer to http://education.Flowtown.[employer]rapeutics/faq/DUD292 (This link is being provided for informational/ educational purposes only.) The performance of this assay has not been clinically validated in patients less than 2 years old. 06/26/2024 8:11 AM EDT 06/26/2024 8:16 AM EDT [facility] - 06/28/2024 5:17 PM EDT FASTING:YES FASTING: YES us Kolb Romero ANP LAB BLOOD ORDERABLES Final Resul t [facility] [address], [facility] [place] [address] [facility] [place] [facility] [address] [place] [address] * (ABNORMAL) Hepatitis B Surface Antibody, Qualitative (06/26/2024 8:11 AM EDT) Pathologist [facility] Hepatitis B Surface Antibody QL REACTIVE( A) NON-REACT RICKY [facility] 06/26/2024 8:11 AM EDT 06/26/2024 8:16 AM EDT Narrative [facility] - 06/28/2024 5:17 PM EDT FASTING:YES FASTING: YES Kennedi Romero [facility] LAB BLOOD ORDERABLES Final Resul t Performing Organization Address [facility] de Phone Number [facility] [address], [facility] [place] [address] [facility] [place] [facility] [address] [place] [address] * Hepatitis B Surface Antigen with Reflex Confirmation (06/26/2024 8:11 AM EDT) Pathologist [facility] Hepatitis B Surface Ag NON-REACT RICKY NON-REACT RICKY [facility] Comment: For additional information, please refer to http://education.DiscountIF/faq/UMM868 (This link is being provided for informational/ educational purposes only.) 06/26/2024 8:11 AM EDT 06/26/2024 8:16 AM EDT Narrative [facility] - 06/28/2024 5:17 PM EDT FASTING:YES FASTING: YES us Kennedi Romero [facility] LAB BLOOD ORDERABLES Final Resul t Performing Organization Address [facility] de Phone Number [facility] [address], [facility] [place] [address] [facility] [place] [facility] [address] [place] [address] * Hemoglobin A1c (06/26/2024 8:11 AM EDT) Hemoglobin A1c 5.3 <5.7 % of total Hgb [facility] Comment: For the purpose of screening for the presence of diabetes: <5.7% ? Consistent with the absence of diabetes 5.7-6.4% ?Consistent with increased risk for diabetes ?(prediabetes) > or =6.5% ??Consistent with diabetes This assay result is consistent with a decreased risk of diabetes. Currently, no consensus exists regarding use of hemoglobin A1c for diagnosis of diabetes in children. According to [place] Diabetes Association (ADA) guidelines, hemoglobin A1c <7.0% represents optimal control in non- diabetic patients. Different metrics may apply to specific patient populations. Standards of Medical Care in Diabetes(ADA). ?? 06/26/2024 8:11 AM EDT 06/26/2024 8:16 AM EDT Narrative [facility] - 06/28/2024 5:17 PM EDT FASTING:YES FASTING: YES [facility] LAB BLOOD ORDERABLES Final Resul t [facility] [address], [place] [address] [facility] [address] [place] [address] * (ABNORMAL) Lipid Panel, Standard (06/26/2024 8:11 AM EDT) Cholesterol, Total 120 <200 mg/dL [facility] HDL Cholesterol 44(L) > OR = 50 mg/dL [facility] Triglycerides 61 <150 mg/dL [facility] LDL Cholesterol 62 mg/dL [facility] Comment: Reference range: <100 Desirable range <100 mg/dL for primary prevention; ?? <70 mg/dL for patients with CHD or diabetic patients with > or = 2 CHD risk factors. LDL-C is now calculated using the Kai-Cornelius calculation, which is a validated novel method providing better accuracy than the Friedewald equation in the estimation of LDL-C. Kai SS et al. ALEKS. 2013;310(19): 6509-6632 (http://education.JumpSeat/faq/CSL474) Chol/HDLC Ratio 2.7 <5.0 (calc) [facility] Non-HDL Cholesterol 76 <130 mg/dL [facility] Comment: For patients with diabetes plus 1 major ASCVD risk factor, treating to a non-HDL-C goal of <100 mg/dL (LDL-C of <70 mg/dL) is considered a therapeutic option. Blood 06/26/2024 8:11 AM EDT 06/26/2024 8:16 AM EDT Narrative [facility] - 06/28/2024 5:17 PM EDT FASTING:YES FASTING: YES [facility] LAB BLOOD ORDERABLES Final Resul t [facility] [address], [place] [address] [facility] [address] [place] [address] * (ABNORMAL) Comprehensive Metabolic Panel (06/26/2024 8:11 AM EDT) Glucose 89 65 - 99 mg/dL [facility] Comment: ? Fasting reference interval Urea Nitrogen (BUN) 13 7 - 25 mg/dL [facility] Creatinine, Serum 0.54 0.50 - 0.96 mg/dL [facility] eGFR 128 > OR = 60 mL/min/1. 73m2 [facility] BUN/Creatinine Ratio SEE NOTE: 6 - 22 (calc) [facility] [place] [facility] Comment: ?? Not Reported: BUN and Creatinine are within ?? reference range. ? Sodium 137 135 - 146 mmol/L [facility] Potassium 4.1 3.5 - 5.3 mmol/L [facility] [place] [facility] Chloride 102 98 - 110 mmol/L [facility] [place] [facility] Carbon Dioxide 28 20 - 32 mmol/L [facility] Calcium 9.4 8.6 - 10.2 mg/dL [facility] [place] [facility] Protein, Total 7.0 6.1 - 8.1 g/dL [facility] Albumin 4.4 3.6 - 5.1 g/dL [facility] [place] [facility] Globulin 2.6 1.9 - 3.7 g/dL (calc) [facility] Albumin/Globuli n Ratio 1.7 1.0 - 2.5 (calc) [facility] Bilirubin, Total 0.3 0.2 - 1.2 mg/dL [facility] Alkaline Phosphatase 47 31 - 125 U/L [facility] AST 21 10 - 30 U/L [facility] ALT 34(H) 6 - 29 U/L [facility] [place] [facility] 06/26/2024 8:11 AM EDT 06/26/2024 8:16 AM EDT Narrative [facility] - 06/28/2024 5:17 PM EDT FASTING:YES FASTING: YES us Kennedi Romero ANP LAB BLOOD ORDERABLES Final Resul t Performing Organization Address [facility]/ZIP Co de Phone Number [facility] [address], [place] [address] [facility] [address] [place] [address] * HEPATITIS C AB W/REFL TO HCV RNA, QN, PCR (11/15/2020 1:59 PM EDT) HEPATITIS C ANTIBODY NON-REACT RICKY NON-REACT RICKY [facility] INDEX 0.02 <1.00 [facility] Comment: ?? HCV antibody was non-reactive. There is no laboratory ?? evidence of HCV infection. ?? In most cases, no further action is required. However, if recent HCV exposure is suspected, a test for HCV RNA (test code 00317) is suggested. ?? For additional information please refer to http://education.Flowtown.Helicon [employer]rapeutics/faq/NIU90o8 (This link is being provided for informational/ educational purposes only.) ?? 11/15/2020 1:59 PM EDT us Kennedi Romero ANP HISTORICAL/NON ORDERABLE LABS Fi nal Result Performing Organization Address [facility]/ZIP Co de Phone Number [facility] [address] [place] [address], [place] from Last 3 Months or Most Recently Relevant to Health Maintenance Insurance [employer] Care Teams Reconditioning Associate Relationship Specialty Start Date End Date Kennedi Romero ANP [address] [place] [address] PCP - General Family Medicine 09/14/20
--- OUTSIDE RECORDS SUMMARY | 2024-08-04 19:07 | XMS_ITS | Encounter Summary ---
Author Organization [employer] Address [address] [facility] 7t [place] [address] Care Team Providers Care Service Officer Name Role Phone Kennedi Romero Primary Care Provider [phone] Reason for Visit * Reason Onset Date Comments Med Refill 07/29/2024 Encounter Details Date Type Department Care Team ([facility] st Contact Info) Description 07/29/2024 Refill [facility] [address] [place], [place] [phone] Kennedi Romero ANP [address] [place] [address] Attention deficit disorder (ADD) without hyperactivity Social History Tobacco Use Types Packs/Day Years [...] Access Q2 Not on file 06/17/2024 Comments Unknown Sex and Gender Information Value [...] Description 09/30/2024 9:15 AM EDT Office Visit [facility] [address] [place] [address] Kennedi Romero ANP [address] [place] [address] documented as of this encounter Visit Diagnoses Diagnosis Attention deficit disorder (ADD) without hyperactivity documented in this encounter Additional Health Concerns Assessment Noted Time PHQ-9 Depression Total Score: 0 06/25/19 25 12:57 PM EDT documented as of this encounter Care Teams Service Officer Relationship Specialty Start Date End Date Kennedi Romero ANP [address] [place] [address] PCP - General Family Medicine 09/14/20 documented as of this encounter
== END 2024-08-04 16:55 | disposition home or self-care (01) ==
LOC: HO.HHCLNP 16:54
PROVIDERS: Visit Provider Advanced Practice Midwife
DX: Z12.4 Encounter for screening for malignant neoplasm of cervix (principal)
CPT/HCPCS: 88175

== ENCOUNTER 2024-09-04 07:00 | Outpatient (REF) | payer OTHER, SELFPAY ==
--- NOTE | ~2024-09-04 | US_ITS ---
EXAMINATION: US PELVIS TRANSABDOMINAL AND TRANSVAGINAL HISTORY: dysmenorrhea and heavy menses COMPARISON: Correlation is made with the CT of the abdomen and pelvis with contrast dated 07/31/2017. TECHNIQUE: Transabdominal and endovaginal real-time 2D arteaga-scale ultrasound was performed. FINDINGS: Uterus: The uterus is normal in size, measuring 9.5 x 4.5 x 5.3 cm. Myometrium has a normal echotexture. No fibroids are identified. Endometrium: The endometrial stripe measures 7 mm in thickness. Right ovary: The right ovary measures 2.5 x 1.9 x 2.6 cm. The right ovary is normal in size and echotexture. Left ovary: The left ovary measures 3.2 x 3.3 x 3.0 cm. There is a 2.5 x 2.2 x 2.4 cm cyst versus follicle. Pelvic fluid: none. US/US pelvic and transvaginal IMPRESSION: 2.5 x 2.2 x 2.4 cm left ovarian cyst versus follicle. Otherwise unremarkable pelvic ultrasound. Electronically signed by: Alek Cm MD 09/04/2024 08:13 AM EDT
--- OUTSIDE RECORDS SUMMARY | 2024-09-04 07:01 | XMS_ITS | Encounter Summary ---
Author Organization [employer] Address [address] [place] [address] 7 [place] [address] Care Team Providers Care Chemistry Tutor Name Role Phone Kennedi Romero Primary Care Provider [phone] Reason for Visit * Reason Onset Date Comments Med Refill 09/02/2024 Encounter Details Date Type Department Care Team ([facility] st Contact Info) Description 09/02/2024 Refill [facility] [address] [place], [place] [phone] Kennedi Romero ANP [address] [place] [address] Attention deficit disorder (ADD) without hyperactivity Social [...] Description 09/30/2024 9:15 AM EDT Office Visit [facility] [address] [place] [address] Kennedi Romero ANP [address] [place] [address] documented as of this encounter Visit Diagnoses Diagnosis Attention deficit disorder (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
== END 2024-09-04 07:01 | disposition home or self-care (01) ==
LOC: HO.US 07:00
PROVIDERS: PCP Nurse Practitioner Primary Care; Visit Provider Advanced Practice Midwife
DX: N94.6 Dysmenorrhea, unspecified (principal); N92.0 Excessive and frequent menstruation with regular cycle
CPT/HCPCS: 76830; 76856

== ENCOUNTER → 2024-09-04 07:02 | Outpatient (BNV) | payer OTHER, SELFPAY | PROVIDERS: PCP Nurse Practitioner Primary Care; Visit Provider Radiology Diagnostic Radiology | DX: N94.6 Dysmenorrhea, unspecified (principal); N92.0 Excessive and frequent menstruation with regular cycle | CPT/HCPCS: 76830; 76856 ==

== ENCOUNTER 2025-03-26 10:03 | Outpatient (REF) | payer OTHER, SELFPAY ==
--- OUTSIDE RECORDS SUMMARY | 2025-03-26 09:00 | XMS_ITS | Encounter Summary ---
Author Organization [employer] Address [address] [place] [address] Care Team Providers Care Bullet Assembly Press Setter Operator Name Role Phone Kennedi Romero Primary Care Provider [phone] Reason for Referral * Imaging (Routine) - Pending Review Specialty Diagnoses / Procedures Referred By Arlene hutson Referred To Contact Cardiology Diagnoses Atypical chest pain Palpitations Procedures Transthoracic Echo (TTE) Complete Kennedi Romero ANP [address] [place] [address] Phone: tel: fax: Referral ID Status Reason Start Date Expiration Date Visits Requested Visits Authorized [id number] Pending Review Perform Procedure 03/26/2026 1 1 * Cardiology (Routine) - Pending Review Specialty Diagnoses / Procedures Referred By Arlene hutson Referred To Contact Cardiology Diagnoses Palpitations Procedures Holter monitor - 48 hour Kennedi Romero ANP [address] [place] [address] Phone: tel: fax: Referral ID Status Reason Start Date Expiration Date V isits Requested Visits Authorized [id number] Pending Review 03/26/2025 03/26/2026 1 1 Encounter Details Date Type Department Care Team (Late st Contact Info) Description 03/26/2025 9:00 AM EST Office Visit [facility] MEDICINE [address] [place] [address] Kennedi Romero ANP [address] [place] [address] Atypical chest pain (Primary Dx); Palpitations; Tachycardia; Chronic migraine without aura without status migrainosus, not intractable Social History Tobacco Use Types Packs/Day Years [...] Sign Reading Time Taken Comments Blood Pressure 100/66 03/26/2025 8:57 AM EST Pulse 84 03/26/2025 8:57 AM EST Temperature 36.4 C (97.5 F) 03/26/2025 8:57 AM EST Respiratory Rate 20 03/26/2025 8:57 AM EST Oxygen Saturation 97% 03/26/2025 8:57 AM EST Inhaled Oxygen Concentration - - Weight 67.4 kg (148 lb 8 oz) 03/26/2025 8:57 AM EST Height 160 cm (5' 3 ) 03/26/2025 8:57 AM EST Body Mass Index 26.31 03/26/2025 8:57 AM EST documented in this encounter Plan of Treatment Pending Results Name Type Priority Associated Diagnoses Date /Time ECG 12 lead ECG Routine Atypical chest pain 03/26/2025 9:25 AM EST Scheduled Orders Name Type Priority Associated Diagnoses Order Schedule Holter monitor - 48 hour Cardiac Services Routine Palpitations Expected: 03/26/2025 (Approximate), Expires: 03/26/2027 Transthoracic Echo (TTE) Complete Echocardiography Routine Atypical chest pain Palpitations Expected: 03/26/2025 (Approximate), Expires: 03/26/2027 CBC auto differential Lab Routine Palpitations Expected: 03/26/2025 (Approximate), Expires: 03/26/2026 documented as of this encounter Procedures Procedure Name Priority Date/Time Associated Diagnosis Comments TSH W/REFLEX TO FT4 Routine 03/26/2025 1 0:08 AM EST Palpitations COMPREHENSIVE METABOLIC PANEL Routine 03/26/2025 10:08 AM EST Palpitations documented in this encounter Results * (ABNORMAL) Comprehensive Metabolic Panel (03/26/2025 10:08 AM EST) Sodium 137 135 - 145 mmol/L [facility] Potassium 3.6 3.3 - 5.1 mmol/L [facility] Chloride 104 96 - 108 mmol/L [facility] Carbon Dioxide 26 22 - 29 mmol/L [facility] Anion Gap 11(L) 12 - 20 [facility] Urea Nitrogen (BUN) 12 9 - 16 mg/dL [facility] Creatinine, Serum 0.57 0.5 - 1.4 mg/dL [facility] Estimated Glomerular Filt Rate >60 [facility] Comment:Chronic Kidney Disea se: Estimated GFR < 60 mL/min/[id number] Kidney Disease: Estimated GFR < 15 mL/min/1.73m2 Glucose 90 60 - 115 mg/dL [facility] Calcium 9.5 8.4 - 10.2 mg/dL [facility] Bilirubin, Total 0.6 0.0 - 1.0 mg/dL [facility] Aspartate Amino Transferase 22 5 - 31 U/L [facility] Alanine Aminotransferase 17 0 - 31 U/L [facility] Total Protein 7.8 6.5 - 8.0 g/dL [facility] Albumin Level 5.1(H) 3.5 - 5.0 g/dL [facility] Alkaline Phosphatase 52 39 - 117 U/L [facility] Blood Venous blood specimen / Unknown 03/26/2025 10:08 AM EST 03/26/2025 10:59 AM EST Kennedi Romero ANP LAB BLOOD ORDERABLES Final Resul t Performing Organization Address [facility] de Phone Number [facility] [address] [place] [phone] * TSH W/Reflex to FT4 (03/26/2025 10:08 AM EST) TSH reflex Free T4 1.09 0.32 - 4.0 uIU/mL [facility] Blood Venous blood specimen / Unknown 03/26/2025 10:08 AM EST 03/26/2025 10:59 AM EST Kennedi Romero ANP LAB BLOOD ORDERABLES Final Resul t Performing Organization Address [facility]/[employer] de Phone Number [facility] [address] [place] [phone] documented in this encounter Visit Diagnoses Diagnosis Atypical chest pain- Primary Other chest pain Palpitations Tachycardia Unspecified tachycardia Chronic migraine without aura without status migrainosus, not intractable documented in this encounter Additional Health Concerns Assessment Noted Time PHQ-9 Depression Total Score: 0 06/25/19 25 12:57 PM EDT documented as of this encounter Care Teams Bullet Assembly Press Setter Operator Relationship Specialty Start Date End Date Kennedi Romero ANP [address] [place] [address] PCP - General Family Medicine 09/14/20 documented as of this encounter
[2025-03-26 11:05] LABS: MANUAL DIFF FLAG NO
[2025-03-26 11:26] LABS: INTERNATIONAL NORM RATIO 1.0 (0.9-1.1); Prothrombin Time 12.7 SEC (11.2-13.5)
[2025-03-26 11:27] LABS: Hematocrit 37.2 % (37.0-47.0); Hemoglobin 12.3 g/dl (12.0-16.0); Imm Gran Abs Auto 0.03 X10*3/uL (0.00-0.03); Imm Gran Pct Auto 0.3 % (0.0-0.4); Lymphocytes Absolute Auto 3.0 X10*3/uL (1.2-4.9); Mean Corpuscular HGB Conc 33.1 g/dl (31.0-35.0); Mean Corpuscular Hemoglobin 26.9 pg (27.0-33.0); Mean Corpuscular Volume 81.4 fL (80.0-98.0); NRBC Abs Auto 0.000 X10*3/uL (0.0-0.012); NRBC Pct Auto 0.0 /100WBC (0.0-0.2); Platelet Count 279 X10*3/uL (160-400); Red Blood Count 4.57 X10*6/uL (4.20-5.50); White Blood Count 11.1 X10*3/uL (4.8-10.8)
[2025-03-26 11:29] LABS: Partial Thromboplastin Time 30.6 SEC (26.7-34.1)
[2025-03-26 12:09] LABS: Alanine Aminotransferase 17 U/L (0-31); Albumin Level 5.1 g/dL (3.5-5.0); Alkaline Phosphatase 52 U/L (39-117); Anion Gap 11 (12-20); Aspartate Amino Transferase 22 U/L (5-31); Blood Urea Nitrogen 12 mg/dL (9-16); Calcium 9.5 mg/dL (8.4-10.2); Carbon Dioxide 26 mmol/L (22-29); Chloride 104 mmol/L (96-108); Cholesterol 143 mg/dL (<200); Estimated Glomerular Filt Rate > 60; HDL Cholesterol 53 mg/dL (>40); Potassium 3.6 mmol/L (3.3-5.1); Sodium 137 mmol/L (135-145); Total Protein 7.8 g/dL (6.5-8.0); Triglycerides 65 mg/dL (<150)
--- OUTSIDE RECORDS SUMMARY | 2025-03-26 12:21 | XMS_ITS | Encounter Summary ---
Author Organization [employer] Address [address] [place] [address] [address] [place] [address] Care Team Providers Care Anthropology Instructor Name Role Phone Kennedi Romero Primary Care Provider Reason for Visit * Reason Onset Date Comments Nurse Triage 03/25/2025 Encounter Details Date Type Department Care Team ([facility] st Contact Info) Description 03/25/2025 Telephone [facility] MEDICINE [address] [place], [place] [phone] Kennedi Romero ANP [address] [place] [address] Nurse Triage Social History Tobacco Use Types Packs/Day Years [...] AM EDT documented as of this encounter Miscellaneous Notes * Telephone Encounter - Jeny Park RN - 03/25/2025 12:18 PM EST TC placed to patient. Patient reported she is currently on Adderall. Patient reported in the last month she has been experiencing mid-sternal chest pain and increased pulse x 3 times. Last episode was 3-6 days ago. 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 Patient denies any symptoms at the time of the nurse triage. Patient requesting to see her PCP to discuss her chronic conditions and the medication she is currently on. RN scheduled a next day appt with patient PCP. RN advised patient if her symptoms return prior to her appt with her PCP to immediately go to theED for further evaluation. Patient verbalized understanding. Protocol Used: Chest Pain (Adult) Protocol-Based Disposition: See in Office or Video Visit Today Video visit not offered Positive Triage Questions: * Chest pain(s) lasting a few seconds and lasts > 3 days * Patient wants to be seen * All higher-acuity triage questions were negative. * Telephone Encounter - Bandar Barth - 03/25/2025 11:48 AM EST Symptoms: Chest Pain - Adult, Medication Reaction Outcome: Schedule an urgent appointment (within 1 hour) or talk to a nurse or provider soon Reason: Caller denied all higher acuity question Please contact pt at [phone]. documented in this encounter Plan of Treatment Not on file documented as of this encounter Visit Diagnoses Not on filedocumented in this encounter Additional Health Concerns Assessment Noted Time PHQ-9 Depression Total Score: 0 06/25/19 25 12:57 PM EDT documented as of this encounter Care Teams Anthropology Instructor Relationship Specialty Start Date End Date Kennedi Romero ANP [address] [place] [address] PCP - General Family Medicine 09/14/20 documented as of this encounter
--- OUTSIDE RECORDS SUMMARY | 2025-03-26 12:21 | XMS_ITS | Encounter Summary ---
Author Organization [employer] Address [address] [facility] [address] [place] [address] Care Team Providers Care Track Broom Operator Name Role Phone Kennedi Romero Primary Care Provider [phone] Encounter Details Date Type Department Care Team (Latest Contact Info) Description 03/26/2025 Travel Social History Tobacco Use Types Packs/Day [...] as of this encounter Plan of Treatment Not on file documented as of this encounter Visit Diagnoses Not on filedocumented in this encounter Additional Health Concerns Assessment Noted Time PHQ-9 Depression Total Score: 0 06/25/19 25 12:57 PM EDT documented as of this encounter Care Teams Track Broom Operator Relationship Specialty Start Date End Date Kennedi Romero ANP [address] [place] [address] PCP - General Family Medicine 09/14/20 documented as of this encounter
--- OUTSIDE RECORDS SUMMARY | 2025-03-26 12:21 | XMS_ITS | Encounter Summary ---
Author Organization [employer] Address [address] [place] [address] [address] [place] [address] Care Team Providers Care Hand Ii Tube Bender Name Role Phone Kennedi Romero Primary Care Provider [phone] Reason for Visit * Reason Onset Date Comments Med Refill 10/09/2024 Encounter Details Date Type Department Care Team ([facility] st Contact Info) Description 10/09/2024 Telephone [facility] MEDICINE [address] [place], [place] [phone] Kennedi Romero ANP [address] [place] [address] Med Refill Social History Tobacco Use Types Packs/Day Years [...] encounter Miscellaneous Notes * Telephone Encounter - Pippa Lizama LPN - 10/23/2024 11:01 AM EDT Triage call returned with BLS # [id number] Gisella. Patient does not require interpretor and demographic updated. Patient reports that for last 2-3 weeks she has noted increased bruising on arms and legs with no noted cause. 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 Has quarter sized bruising that isflat and purple resoves in several days. No over use of NSAIDS and no nose bleeds or bleeding from gums with oral care. Disposition reviewed and patient would like PCP to order labs and then she agrees to be seen if labs are abnormal. Team tasked to follow with a provider for lab request. Patient is uploading photo of current bruise for review. Protocol Used: Bruises (Adult) Protocol-Based Disposition: See in Office or Video Visit within 2 Weeks Override (Final) Disposition: Discuss with PCP and Callback by Nurse Today Override Reason: Other Override Notes: Patient requesting labs and uploading current picture of bruise. Positive Triage Question: * Bruising easily is a chronic symptom (recurrent or ongoing AND present > 4 weeks) * All higher-acuity triage questions were negative Care Advice Discussed: * Avoid Aspirin * Reasons To Call Back - You become worse * Telephone Encounter - Pippa Lizama LPN - 10/23/2024 9:09 AM EDT Call returned to patient in regards to Portal question. S # [id number] call. No answer x 2. Team tasked to follow as unable to make contact at this time. documented in this encounter Plan of Treatment Not on file documented as of this encounter Visit Diagnoses Not on filedocumented in this encounter Additional Health Concerns Assessment Noted Time PHQ-9 Depression Total Score: 0 06/25/19 25 12:57 PM EDT documented as of this encounter Care Teams Hand Ii Tube Bender Relationship Specialty Start Date End Date Kennedi Romero ANP [address] [place] [address] PCP - General Family Medicine 09/14/20 documented as of this encounter
--- OUTSIDE RECORDS SUMMARY | 2025-03-26 12:21 | XMS_ITS | Encounter Summary ---
Author Organization [employer] Address [address] [facility] [address] [place] [address] Care Team Providers Care Director Pharmacovigilance Name Role Phone Kennedi Romero Primary Care Provider [phone] Encounter Details Date Type Department Care Team (Late st Contact Info) Description 11/03/2024 Orders Only [facility] MEDICINE [address] [place], [place] [phone] Kennedi Romero ANP [address] [place], [place] [phone] Social History Tobacco Use Types Packs/Day Years [...] documented as of this encounter Care Teams Director Pharmacovigilance Relationship Specialty Start Date End Date Kennedi Romero ANP [address] [place] [phone] PCP - General Family Medicine 09/14/20 documented as of this encounter
--- OUTSIDE RECORDS SUMMARY | 2025-03-26 12:21 | XMS_ITS | Clinical Summary ---
Author Organization [employer] Address [address] [place] [address] 7 [place] [address] Care Team Providers Care Reserve Operator Name Role Phone Kennedi Romero Primary Care Provider [phone] Allergies Active Allergy Reactions Criticality Noted Date Comments Sumatriptan 06/07/2021 Other reaction(s): Nausea / Vomiting Medications naproxen (Naprosyn) 375 MG tabletIndication s:Chronic migraine without aura without status migrainosus, not intractable Take 1 tab as needed up to twice daily with food as needed for headache 60 tablet 1 08/15/19 25 Active ondansetron (Zofran) 4 MG tabletIndication s:Nausea Take 1-2 tabs as needed for nausea up to TID 20 tablet 2 03/12/20 25 Active amphetamine-dext roamphetamine XR (Adderall XR) 15 MG 24 hr capsuleIndicatio ns:Attention deficit disorder (ADD) without hyperactivity TAKE 1 CAPSULE BY MOUTH EVERY DAY. DO NOT CRUSH OR CHEW. 30 capsule 03/12/20 25 Active riboflavin (Vitamin B-2) 400 MG tabletIndication s:Chronic migraine without aura without status migrainosus, not intractable Take 1 tablet (400 mg) by mouth Once per day. 90 tablet 3 03/26/20 25 Active riboflavin (Vitamin B-2) 400 MG tabletIndication s:Chronic migraine without aura without status migrainosus, not intractable Take 1 tablet (400 mg) by mouth Once per day. 90 tablet 3 08/15/19 25 025 Discontinued(Re order (will not trigger notification to Pharmacy)) ondansetron (Zofran) 4 MG tabletIndication s:Nausea Take 1-2 tabs as needed for nausea up to TID 20 tablet 2 02/06/20 25 025 Discontinued(Re order (will not trigger notification to Pharmacy)) amphetamine-dext roamphetamine XR (Adderall XR) 15 MG 24 hr capsuleIndicatio ns:Attention deficit disorder (ADD) without hyperactivity TAKE 1 CAPSULE BY MOUTH EVERY DAY. DO NOT CRUSH OR CHEW. 30 capsule 02/06/20 25 025 Discontinued(Re order (will not trigger notification to Pharmacy)) Active Problems Problem Noted Date Diagnosed Date Chronic migraine without aur a without status migrainosus, not intractable 09/30/2024 Overview (09/30/2024): much better w/ riboflavin Attention deficit disorder (ADD) without hyperac tivity 07/03/2022 Preoperative examination 04/06/2022 Assessment & Plan (04/06/2022 11:00 AM EST): Patient is here for a preoperative examination She is scheduled for: a tummy Tuck, Breast lift with implant and chin by Dr. Nigel Barney in [place] The procedure [place] [address] Patient has no particular complaints today, feels [...] Encounters Date Type Department Care Team Description 03/26/2025 9:00 AM EST Office Visit [facility] [address] [place] [phone] Kennedi Romero ANP Atypical chest pain (Primary Dx); Palpitations; Tachycardia; Chronic migraine without aura without status migrainosus, not intractable 03/26/2025 Travel 03/25/2025 Telephone [facility] [address] [place] [phone] Kennedi Romero ANP Nurse Triage 03/11/2025 Refill [facility] [address] [place] [address] Kennedi Romero ANP Nausea; Attention deficit disorder (ADD) without hyperactivity 02/04/2025 Refill [facility] [address] [place] [address] Kennedi Romero ANP Nausea; Attention deficit disorder (ADD) without hyperactivity 12/30/2024 Refill [facility] [address] [place] [address] Kennedi Romero ANP Nausea; Attention deficit disorder (ADD) without hyperactivity from Last 3 Months Immunizations Immunization Administration Dates Next Due HPV, Quadrivalent 04/06/2011,12/20/2006,10/17/19 [...] Medical History Relation Name Comments Diabetes Father Francsco Breast cancer Neg Hx Colon cancer Neg [...] Q2 Not on file 06/17/2024 Comments No Intention Date Recorded No desire to become (finding) 0 08/04/2024 Sex and Gender Information Value Date Recorded [...] Mass Index 26.31 03/26/2025 8:57 AM EST Plan of Treatment Health Maintenance Due Date Last Done Comments COVID-19 Vaccine ( season) 2024 06/24/2024, 12/07/2021, 05/04/2020, Additional history exists HPV/Cotest 2024 Alcohol/Substance Use Screening 06/24/2025 06/24/2024 Depression Screening 06/24/2025 06/24/2024, 06/25/19 SDOH Screening 06/24/2025 06/24/2024 Disability Screening 07/28/2025 07/28/2024 Family Planning (PISQ) 08/04/2025 08/04/2024 Tobacco Screening 03/26/2026 03/26/2025 Cervical Cancer Screening 08/05/2027 Pap Smear 08/05/2027 08/04/2024 DTaP/Tdap/Td Vaccines (3 - Td or Tdap) 11/15/2030 11/15/2020, 02/26/2018 Zoster Vaccines (1 of 2) 2044 RSV Patients and Patients Aged 60 years or older (1 - 1-dose 75+ series) 2069 HPV Vaccines Completed 04/06/2011, 12/08, 10/16/2006 Hepatitis A Vaccines Completed 04/29/2011, 10/06/19 Hepatitis C Screening Completed 11/15/2020 Hepatitis B Vaccines Completed 08/01/2021, 06/22/1995, 02/16/1995, Additional history exists HIV Screening Completed 06/26/2024, 11/15/2020 Influenza Vaccine Completed 12/09/2024, , 03/09/2023, Additional history exists HIB Vaccines Aged Out No longer eligi ble based on patient's age to complete this topic IPV Vaccines Aged Out No longer eligi ble based on patient's age to complete this topic Meningococcal B Vaccine Aged Out No l onger eligible based on patient's age to complete this topic Meningococcal Vaccine Aged Out No jaja loren eligible based on patient's age to complete this topic Pneumococcal Vaccine: Pediatrics (0 to 5 Years) and At-Risk Patients (6 to 49) Years Aged Out No longer eligible based on patient's age to complete this topic RSV under 20 months Aged Out No longe r eligible based on patient's age to complete this topic Rotavirus Vaccines Aged Out No longer eligible based on patient's age to complete this topic Procedures Procedure Name Priority Date/Time Associated Diagnosis Comments COMPREHENSIVE METABOLIC PANEL Routine 03/26/2025 10:08 AM EST Palpitations TSH W/REFLEX TO FT4 Routine 03/26/2025 1 0:08 AM EST Palpitations APTT Routine 03/26/2025 10:08 AM EST Easy bruising PROTHROMBIN TIME-INR Routine 03/26/2025 10:08 AM EST Easy bruising LIPID PANEL, STANDARD Routine 03/26/2025 10:08 AM EST Lipid screening HEMOGLOBIN A1C Routine 03/26/2025 10:08 AM EST History of gestational diabetes CBC WITH AUTO DIFFERENTIAL Routine 03/26/2025 10:08 AM EST Healthcare maintenance PAP SMEAR Routine 08/04/2024 10:06 AM EDT Cervical cancer screening HIV 1/2 ANTIGEN/ANTIBODY, FOURTH GENERATION W/RFL Routine 06/26/2024 8:11 AM EDT ZZZ HISTORICAL HEPATITIS C AB W/REFL TO HCV RNA, QN, PCR Routine 11/15/2020 1:59 PM EDT from Last 3 Months or Most Recently Relevant to Health Maintenance Results * TSH W/Reflex to FT4 (03/26/2025 10:08 AM EST) TSH reflex Free T4 1.09 0.32 - 4.0 uIU/mL [facility] Blood Venous blood specimen / Unknown 03/26/2025 10:08 AM EST 03/26/2025 10:59 AM EST us Kennedi [facility] BLOOD ORDERABLES Final Resul t [facility] [address] [place] [phone] * (ABNORMAL) CBC auto differential (03/26/2025 10:08 AM EST) White Blood Count 11.1(H) 4.8 - 10.8 X10*3/uL [facility] Red Blood Count 4.57 4.20 - 5.50 X10*6/uL [facility] Hemoglobin 12.3 12.0 - 16.0 g/dl [facility] Hematocrit 37.2 37.0 - 47.0 % [facility] Mean Corpuscular Volume 81.4 80.0 - 98.0 fL [facility] Mean Corpuscular Hemoglobin 26.9(L) 27.0 - 33.0 pg [facility] Mean Corpuscular HGB Conc 33.1 31.0 - 35.0 g/dl [facility] Red Cell Distribution Width 12.6 11.0 - 16.0 % [facility] Platelet Count 279 160 - 400 X10*3/uL [facility] Mean Platelet Volume 9.9 9.4 - 12.3 fL [facility] Neutrophils Percent Auto 65.8 45 - 73 % [facility] Imm Gran Pct Auto 0.3 0.0 - 0.4 % [facility] Lymphocytes Percent Auto 27.0 20 - 40 % [facility] Monocytes Percent Auto 5.8 2 - 11 % [facility] Eosinophils Percent Auto 0.7 0 - 4 % [facility] Basophils Percent Auto 0.4 0 - 2 % [facility] NRBC Pct Auto 0.0 0.0 - 0.2 /100WBC [facility] Neutrophils Absolute Auto 7.3 2.0 - 8.3 x10*3/uL [facility] Imm Gran Abs Auto 0.03 0.00 - 0.03 X10*3/uL [facility] Lymphocytes Absolute Auto 3.0 1.2 - 4.9 X10*3/uL [facility] Monocytes Absolute Auto 0.7 0.1 - 1.2 X10*3/uL [facility] Eosinophils Absolute Auto 0.1 0.0 - 0.4 X10*3/uL [facility] Basophils Absolute Auto 0.0 0.0 - 0.2 X10*3/uL [facility] NRBC Abs Auto 0.000 0.0 - 0.012 X10*3/uL [facility] Blood Venous blood specimen / Unknown 03/26/2025 10:08 AM EST 03/26/2025 10:59 AM EST us Kennedi [facility] BLOOD ORDERABLES Final Resul t Performing Organization Address [facility] Co de Phone Number [facility] [address] [place] [phone] * Partial Thromboplastin Time, Activated (APTT) (03/26/2025 10:08 AM EST) Partial Thromboplastin Time 30.6 26.7 - 34.1 SEC [facility] Blood Venous blood specimen / Unknown 03/26/2025 10:08 AM EST 03/26/2025 10:59 AM EST Roseanna Bowers MD LAB BLOOD ORDERAB LES Final Result Performing Organization Address [facility] Co de Phone Number [facility] [address] [place] [phone] * Prothrombin Time-INR (03/26/2025 10:08 AM EST) Prothrombin Time 12.7 11.2 - 13.5 SEC [facility] INTERNATIONAL NORM RATIO 1.0 0.9 - 1.1 [facility] Comment:INTERNATIONAL NORMAL IZED RATIO (INR) REFERENCE RANGES Reference RangeFor patients not on anticoagulant therapy: 0.9 - 1.1INR ranges for oral anticoagulanttherapy:For prevention and treatment of venous thrombosis and pulmonary embolism: 2.0 - 3.0For acute myocardial infarction with aspirin therapy: 2.0 - 3.0For acute myocardial infarction without aspirin therapy: 3.0 - 4.0For patients with mechanical prosthetic heart valves: 2.5 - 3.5 Blood Venous blood specimen / Unknown 03/26/2025 10:08 AM EST 03/26/2025 10:59 AM EST us Roseanna Bowers MD LAB BLOOD ORDERAB LES Final Result Performing Organization Address [facility] de Phone Number [facility] [address] [place] [phone] * Hemoglobin A1c (03/26/2025 10:08 AM EST) Hemoglobin A1c 5.2 <6.0 % [facility] Comment:Hemoglobin A1C Refer ence Range Adults: 4.8 - 6.0 % Non diabetic: < 6.0 % Goal: < 7.0 %Additional Action Suggested: > 8.0 %Note: Hemoglobin A1c results are invalid for patients with abnormal amounts of HbF. Blood transfusions may impact the HbA1c concentration in the patient sample. Estimated Average Glucose 103 mg/dL [facility] Comment:eAG = Estimated ave rage glucose which is %A1C expressed asaverage glucose, using the formula of the [id number] Glucose study (ADAG), Diabetes Care, Vol.31,#8,Nov. 2007 Blood Venous blood specimen / Unknown 03/26/2025 10:08 AM EST 03/26/2025 10:59 AM EST us Kennedi [facility] BLOOD ORDERABLES Final Resul t Performing Organization Address [facility] Co de Phone Number [facility] [address] [place] [phone] * Lipid Panel, Standard (03/26/2025 10:08 AM EST) Triglycerides 65 <150 mg/dL [facility] Comment:Desirable Triglyceri de: less than 150 mg/dLBorderline High Triglyceride 150-199 mg/dLHigh Triglyceride: 200-499 mg/dLVery High Triglyceride: greater than or equal to 5OO mg/dL Cholesterol 143 <200 mg/dL [facility] Comment:Desirable Cholestero l: less than 200 mg/dLBorderline High Cholesterol: 200-239 mg/dLHigh Cholesterol: greater than 239 mg/dL LDL Cholesterol Calculated 77 <100 mg/dL [facility] Comment:Desirable LDL: less than 100 mg/dLNear Optimal/Above Optimal LDL: 110- 129 mg/dLBorderline High LDL: 130-159 mg/dLHigh LDL: 160-189 mg/dLVery High LDL: greater than or equal to 190 mg/dL HDL Cholesterol 53 >40 mg/dL [facility] Comment:Desirable HDL: great er than 40 mg/dL Note: This HDL assay may give artificially low results in patients with liver disease. Blood Venous blood specimen / Unknown 03/26/2025 10:08 AM EST 03/26/2025 10:59 AM EST us Kennedi Romero [facility] LAB BLOOD ORDERABLES Final Resul t [facility] [address] [place] [phone] * (ABNORMAL) Comprehensive Metabolic Panel (03/26/2025 10:08 AM EST) Sodium 137 135 - 145 mmol/L [facility] Potassium 3.6 3.3 - 5.1 mmol/L [facility] Chloride 104 96 - 108 mmol/L [facility] Carbon Dioxide 26 22 - 29 mmol/L [facility] Anion Gap 11(L) 12 - 20 [facility] Urea Nitrogen (BUN) 12 9 - 16 mg/dL [facility] Creatinine, Serum 0.57 0.5 - 1.4 mg/dL [facility] Estimated Glomerular Filt Rate >60 [facility] Comment:Chronic Kidney Disea se: Estimated GFR < 60 mL/min/1.56m8Kkhzga Kidney Disease: Estimated GFR < 15 mL/min/1.73m2 Glucose 90 60 - 115 mg/dL [facility] Calcium 9.5 8.4 - 10.2 mg/dL [facility] Bilirubin, Total 0.6 0.0 - 1.0 mg/dL [facility] Aspartate Amino Transferase 22 5 - 31 U/L [facility] Alanine Aminotransferase 17 0 - 31 U/L [facility] Total Protein 7.8 6.5 - 8.0 g/dL [facility] Albumin Level 5.1(H) 3.5 - 5.0 g/dL [facility] Alkaline Phosphatase 52 39 - 117 U/L [facility] Blood Venous blood specimen / Unknown 03/26/2025 10:08 AM EST 03/26/2025 10:59 AM EST us [facility] LAB BLOOD ORDERABLES Final Resul t Performing Organization Address City/State/[facility] Co de Phone Number [facility] [address] [place] [phone] * Pap Smear (08/04/2024 10:06 AM EDT) Swab Cervix uteri structure / Unknown 08/04/2024 10:06 AM EDT 08/05/2024 9:18 AM EDT Narrative [facility] - 08/07/2024 10:48 AM EDT ----- ------- Name: Disha Qureshi Age/Sex: 28/F : 1995 Unit#: [id number] Attend Dr: DEVIKA ROBLEDO CNM Re08/04/24 Status: DEP REF Location: HO.HHCLNP Disch: ----- ------- SPEC : [id number] RECD: 08/05/24 STATUS: RAVEN ORTIZ NUM: [id number] MARIA DEL CARMEN: 08/04/24-[address] [facility] [address]: DEVIKA ROBLEDO CNM ENTERED: 08/05/24 SP TYPE: Pap Smr OTHR DR: ORDERED: Pap Smear Interpretation Satisfactory for evaluation. Negative for intraepithelial lesion or malignancy. Clinical Information LMP:Unknown date Previous PAP test:Unknown date/findings Material Received ThinPrep-Cervical ----- ------- Signed (signature on file) LJ Muniz (ASCP) 08/07/24 1048 ----- ------- END OF REPORT us Devika Robledo [facility] CYTOLOGY ORDERABLES F inal Result [facility] [address] [place] [phone] * HIV-1/2 Antigen and Antibodies, Fourth Generation, with Reflexes (06/26/2024 8:11 AM EDT) HIV Antigen/Antibody, 4th Generation NON-REAC TIVE NON-REAC TIVE [place] [employer] Comment: HIV-1 antigen and HIV-1/HIV-2 antibodies were not detected. There is no laboratory evidence of HIV infection. PLEASE NOTE: This information has been disclosed to you from records whose confidentiality may be protected by state law. If your state requires such protection, then the state law prohibits you from making any further disclosure of the information without the specific written consent of the person to whom it pertains, or as otherwise permitted by law. A general authorization for the release of medical or other information is NOT sufficient for this purpose. For additional information please refer to http://[employer]ollfish/faq/OBY515 (This link is being provided for informational/ educational purposes only.) The performance of this assay has not been clinically validated in patients less than 2 years old. 06/26/2024 8:11 AM EDT 06/26/2024 8:16 AM EDT Narrative [facility] - 06/28/2024 5:17 PM EDT FASTING:YES FASTING: YES [facility] LAB BLOOD ORDERABLES Final Resul t [facility] [address], [place] [address] [place] [employer] [address] [place] [phone] * HEPATITIS C AB W/REFL TO HCV RNA, QN, PCR (11/15/2020 1:59 PM EDT) HEPATITIS C ANTIBODY NON-REACT RICKY NON-REACT RICYK [facility] INDEX 0.02 <1.00 [facility] Comment: HCV antibody was non-reactive. There is no laboratory evidence of HCV infection. In most cases, no further action is required. However, if recent HCV exposure is suspected, a test for HCV RNA (test code 99171) is suggested. For additional information please refer to [email or web address]/faq/DQX59k0 (This link is being provided for informational/ educational purposes only.) 11/15/2020 1:59 PM EDT us Kennedi [facility]ORICAL/NON ORDERABLE LABS Fi nal Result [facility] [address] from Last 3 Months or Most Recently Relevant to Health Maintenance Insurance [employer] Care Teams Reserve Operator Relationship Specialty Start Date End Date Kennedi Romero ANP [address] [place] [phone] PCP - General Family Medicine 09/14/20
[2025-03-26 13:41] LABS: HBS Num1 124.79 mIU/mL (0-7.99); HBc Num1 0.14 S/CO (0.00-0.79); HBsAGNum1 0.41 S/CO (0.00-0.99); HIV Num 1 0.14 S/CO (0.00-0.99); ~Hepatitis B Surface Antibody REACTIVE (Nonreactive)
[2025-03-26 13:42] LABS: Hepatitis B Surface Antigen Negative (Negative)
== END 2025-03-26 10:04 | disposition home or self-care (01) ==
LOC: HO.HHCL 10:03
PROVIDERS: Student in an Organized Health Care Education/Training Program; PCP Nurse Practitioner Primary Care; Visit Provider Nurse Practitioner Primary Care
DX: Z00.00 Encounter for general adult medical examination without abnormal findings (principal); R00.2 Palpitations; R23.3 Spontaneous ecchymoses; Z13.220 Encounter for screening for lipoid disorders; Z86.32 Personal history of gestational diabetes; Z13.6 Encounter for screening for cardiovascular disorders
CPT/HCPCS: 36415; 80053; 80061; 83036; 84443; 85025; 85610; 85730; 86481; 86592; 86704; 86706; 87340; 87389